=== PATIENT | female | born 1980 | race Caucasian/White ===

== ENCOUNTER 2019-12-21 13:02 | Emergency (ER) | payer MEDICAID ==
[~2019-12-21] VITALS: Ht 167.6 cm; Wt 55.8 kg
[2019-12-21 13:19] VITALS: Ht 167.6 cm; Wt 55.8 kg
[2019-12-21 16:06] VITALS: BP 99/63
== END 2019-12-21 16:06 | disposition home or self-care (01) ==
LOC: ED 13:02
DX: J06.9 Acute upper respiratory infection, unspecified (principal); J30.9 Allergic rhinitis, unspecified
CPT/HCPCS: 87804